=== PATIENT | female | born 1965 | race Caucasian/White ===

== ENCOUNTER 2018-09-29 13:11 | Emergency (ER) | payer OTHER ==
[~2018-09-29] VITALS: Ht 162.6 cm; Wt 115.0 kg
[~2018-09-29 13:11] MED LIST: CIPR500T87 PO; DULO30CA2 PO; DULO60CA7 PO; IBUP200C8 PO; LAMO100T5 PO; OMEP10CA4 PO; OXYC-306 PO; RISP1TAB45 PO; ZOLP-413 PO
[2018-09-29] MEDS ORDERED: DIAZEPAM 10 MG TABLET PO ONE (14:00)
[2018-09-29] MEDS ORDERED: HYDROcodone/APAP 5/325 TABLET PO PRN (14:00)
[2018-09-29] MEDS ORDERED: DIAZEPAM 5 MG TABLET ONE ×2 (14:17→14:24)
[2018-09-29] MEDS ORDERED: HYDROcodone/APAP 5/325 TABLET ONE (14:18)
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
[2018-09-29] MEDS ORDERED: KETOROLAC 30 MG/1 ML ONE (14:24)
--- NOTE | 2018-09-29 14:36 | NUR ---
RETURNED FROM XR
[2018-09-29 16:34] VITALS: BP 119/71
== END 2018-09-29 16:37 | disposition home or self-care (01) ==
LOC: ED 15:45
DX: S06.0X0A Concussion without loss of consciousness, initial encounter (principal); S16.1XXA Strain of muscle, fascia and tendon at neck level, initial encounter; S39.012A Strain of muscle, fascia and tendon of lower back, initial encounter; S29.012A Strain of muscle and tendon of back wall of thorax, initial encounter; S09.8XXA Other specified injuries of head, initial encounter; Z90.49 Acquired absence of other specified parts of digestive tract; Z90.710 Acquired absence of both cervix and uterus; V43.52XA Car driver injured in collision with other type car in traffic accident, initial encounter; Y93.89 Activity, other specified; Y92.89 Other specified places as the place of occurrence of the external cause; Y99.8 Other external cause status
CPT/HCPCS: 70450; 72072; 72110; 72125; 99284

== ENCOUNTER → 2019-08-20 | Outpatient (CLI) | payer OTHER ==
[~2019-08-20] MED LIST changes: -OMEP10CA4 PO; +OMEP10CA5 PO; +REGADENOSON 0.4 MG/5 ML SYRINGE ONE
== END | disposition home or self-care (01) ==
LOC: CFH 07:58
PROVIDERS: ATTEND Internal Medicine
DX: I25.89 Other forms of chronic ischemic heart disease (principal); R79.82 Elevated C-reactive protein (CRP)
CPT/HCPCS: 78452; 93017; A9502; J2785

== ENCOUNTER 2019-09-10 09:48 | Day surgery (SDC) | payer OTHER ==
[~2019-09-10] VITALS: Ht 162.6 cm; Wt 115.0 kg
[~2019-09-10 09:48] MED LIST changes: -REGADENOSON 0.4 MG/5 ML SYRINGE ONE
[2019-09-10] MEDS ORDERED: SODIUM CHLORIDE 0.9% 1,000 ML IV SCH ×2 (11:00→13:26)
[2019-09-10] MEDS ORDERED: ATOR40TA PO (11:44)
[2019-09-10] MEDS ORDERED: ASPI-496 PO (11:44)
[2019-09-10 12:12] LABS: BASOPHILS # (AUTO) 0.04 x10^3/uL (0-0.1); BASOPHILS % (AUTO) 1 % (0-1); EOSINOPHILS # (AUTO) 0.16 x10^3/uL (0-0.4); EOSINOPHILS % (AUTO) 3 % (1-7); LYMPHOCYTES # (AUTO) 1.28 x10^3/uL (1-3.4); LYMPHOCYTES % (AUTO) 21 % (22-44); MD NO; MEAN CORPUSCULAR HEMOGLOBIN 28.1 pg (27.0-34.8); MEAN CORPUSCULAR HGB CONC 32.9 g/dL (32.4-35.8); MEAN CORPUSCULAR VOLUME 85.4 fL (80-100); MEAN PLATELET VOLUME 7.6 fL (7.4-10.4); MONOCYTES # (AUTO) 0.59 x10^3/uL (0.2-0.8); MONOCYTES % (AUTO) 10 % (2-9); NEUTROPHILS # (AUTO) 3.95 x10^3/uL (1.8-6.8); NEUTROPHILS % (AUTO) 66 % (42-75); PLATELET COUNT 376 x10^3/uL (130-400); RED BLOOD COUNT 4.84 x10^6/uL (3.82-5.3); RED CELL DISTRIBUTION WIDTH 14.2 % (9.6-15.2)
[2019-09-10 12:26] LABS: ANION GAP 6 mmol/L (5-15); CALCIUM 9.2 mg/dL (8.5-10.1); CHLORIDE 104 mmol/L (98-107); CREATININE 0.81 mg/dL (0.55-1.02)
[2019-09-10] MEDS ORDERED: VERAPAMIL 2.5 MG/ML, 2ML ONE (12:44)
[2019-09-10] MEDS ORDERED: MIDAZOLAM 1 MG/ML, 5ML ONE (12:44)
[2019-09-10] MEDS ORDERED: TICAGRELOR 90 MG TABLET ONE (12:44)
[2019-09-10] MEDS ORDERED: FENTANYL PF 100 MCG/2ML ONE (12:44)
[2019-09-10] MEDS ORDERED: HEPARIN 1,000 UNITS/ML, 10ML ONE (12:45)
[2019-09-10] MEDS ORDERED: LIDOCAINE 2%, 20ML ONE (12:45)
[2019-09-10] MEDS ORDERED: BIVALIRUDIN 250 MG ONE (12:45)
== END 2019-09-10 15:22 | disposition home or self-care (01) ==
LOC: CACL 09:48
PROVIDERS: ATTEND Internal Medicine Cardiovascular Disease
DX: R94.39 Abnormal result of other cardiovascular function study (principal); I25.110 Atherosclerotic heart disease of native coronary artery with unstable angina pectoris; I25.83 Coronary atherosclerosis due to lipid rich plaque; E78.2 Mixed hyperlipidemia; M10.9 Gout, unspecified; M06.9 Rheumatoid arthritis, unspecified; F41.9 Anxiety disorder, unspecified; E66.9 Obesity, unspecified; Z68.41 Body mass index [BMI] 40.0-44.9, adult; Z79.899 Other long term (current) drug therapy; Z88.5 Allergy status to narcotic agent; Z88.8 Allergy status to other drugs, medicaments and biological substances; Z91.018 Allergy to other foods; Z90.710 Acquired absence of both cervix and uterus; Z90.722 Acquired absence of ovaries, bilateral; Z90.49 Acquired absence of other specified parts of digestive tract; Z98.890 Other specified postprocedural states
CPT/HCPCS: 36415; 80048; 85025; 93458; 99156; C1769; C1894; J1644; J2250; J3010; Q9967; J0583